=== PATIENT | male | born 1985 | race Caucasian/White ===

== ENCOUNTER 2020-02-24 07:41 | Outpatient (REF) | payer OTHER, SELFPAY ==
[2020-02-24 11:51] LABS: Alanine Aminotransferase 18 U/L (0-40); Albumin Level 4.6 g/dL (3.5-5.0); Alkaline Phosphatase 48 U/L (39-117); Anion Gap 11 (12-20); Aspartate Amino Transferase 18 U/L (5-37); Blood Urea Nitrogen 13 mg/dL (9-16); Calcium 9.3 mg/dL (8.4-10.2); Carbon Dioxide 29 mmol/L (22-29); Chloride 104 mmol/L (96-108); Cholesterol 169 mg/dL; Estimated Glomerular Filt Rate > 60; Glucose Fasting 87 mg/dL (60-99); HDL Cholesterol 49 mg/dL; LDL Cholesterol Calculated 108 mg/dl; Potassium 4.2 mmol/l (3.3-5.1); Sodium 140 mmol/L (135-145); Total Protein 7.3 g/dL (6.5-8.0); Triglycerides 63 mg/dL
== END 2020-02-24 07:42 | disposition home or self-care (01) ==
LOC: HO.HMGCLDS 07:41
PROVIDERS: PCP Nurse Practitioner Family; Visit Provider Nurse Practitioner Family
DX: Z00.00 Encounter for general adult medical examination without abnormal findings (principal)
CPT/HCPCS: 36415; 80053; 80061; 84443

== ENCOUNTER 2021-01-17 11:04 | Outpatient (REF) | payer OTHER, SELFPAY ==
--- NOTE | ~2021-01-17 | XR_ITS ---
EXAMINATION: XR LUMBOSACRAL SPINE CLINICAL INFORMATION: Radiculopathy COMPARISON: 10/02/2018 TECHNIQUE: Three views of the lumbosacral spine. FINDINGS: The vertebral bodies and posterior elements are normal. The disc spaces are preserved and the vertebral alignment is normal. The sacroiliac joints are symmetric. The visualized sacrum is intact. Normal bowel gas pattern. The paraspinal soft tissues are normal. XR/XR lumbar spine 2-3V IMPRESSION: Unremarkable examination.
== END 2021-01-17 11:05 | disposition home or self-care (01) ==
LOC: HO.HMGCX 11:04
PROVIDERS: PCP Nurse Practitioner Family; Visit Provider Nurse Practitioner Family
DX: G89.29 Other chronic pain (principal); M54.16 Radiculopathy, lumbar region
CPT/HCPCS: 72100

== ENCOUNTER 2021-02-28 08:00 | Outpatient (RCR) | payer OTHER, SELFPAY ==
--- NOTE | 2021-01-31 08:18 | MHC.PT.EP ---
[facility] [place] Office [place] Office [place] Office [address] Paxton Rodriguez [address] [phone] F: [phone] F: [phone] F: [phone] F: [phone] Physical Therapy Plan of Care Date of Evaluation: Date of Surgery: n/a Diagnosis: chornic low back pain with radicular symptoms. Assessment: Patient is a 35 year old R handed male who presents with s/s consistent with pain low back pain with radiculopathy. He works with daily job demands including sitting, standing, walking. He does have to complete a PT test as well. Patient past medical history includes shoulder pain. Current impairments include pain, posture, ROM, strength, flexibility, activity tolerance and functional mobility. Functional limitations include decreased ability to bend, lift, carry, push, pull, sleep and squat as well as perform a plank. Patient is motivated with good rehab potential. Skilled PT will address impairments and functional limitations in order to achieve goals. Frequency and Duration: The patient will be seen 1x/week for 8 weeks Short Term Goals: I with HEP - 2 weeks Centralized s/s - 3 weeks Demo proper squat form - 3 weeks [facility]cc Goals: Oswestry 12% or better - 6 weeks I with s/s management - 8 weeks Pain with ADLs 2/10 or better - 8 weeks Treatment Plan: Modalities to reduce pain, spasms and effusion. Manual therapy to restore motion and function. Therapeutic exercise to improve strength and flexibility. Neuromuscular re-education for posture and balance. Therapeutic activities to return to functional activities of daily living. Electronically signed by: Cullen Llamas, PT Please sign and return to therapist. Thank you for your referral.
--- NOTE | 2021-09-28 09:40 | MHC.PT.DC ---
[facility] [place] Office [place] Office [place] Office [address] [phone] F: [phone] F: [phone] F: [phone] F: [phone] Physical Therapy Discharge Report Diagnosis: chornic low back pain with radicular symptoms. Date of Surgery: n/a Date of Evaluation: 01/30/21 Date of Discharge: 05/01/21 Treatments to Date: 4 Cancellations to Date: 0 No Shows to Date: 0 Discharge Status: Independent with HEP Discharge Summary: Pt had to stop PT at this time. Pt felt reduced tightness after RX. R D/S spasm palpable with STM. Improved L L.E leg length after MET Electronically signed by: Cullen Llamas, PT Please sign and return to therapist. Thank you for your referral.
== END 2021-09-28 09:40 | disposition home or self-care (01) ==
LOC: HO.PTCHIC 08:00
PROVIDERS: PCP Nurse Practitioner Family; Visit Provider Nurse Practitioner Family
DX: M54.16 Radiculopathy, lumbar region (principal); G89.29 Other chronic pain
CPT/HCPCS: 97014; 97110; 97140; 97161

== ENCOUNTER 2021-03-02 17:02 | Outpatient (REF) | payer OTHER, SELFPAY ==
--- NOTE | ~2021-03-02 | XR_ITS ---
EXAMINATION: XR ANKLE, RIGHT CLINICAL INFORMATION: Ankle sprain. COMPARISON: None. TECHNIQUE: AP, lateral, and mortise views of the right ankle. FINDINGS: No evidence of acute fractures or malalignment. The ankle mortise is congruent and the talar dome is within normal limits. There is circumferential soft tissue thickening around the ankle without unexpected radiopaque foreign bodies or subcutaneous air. XR/XR ankle RT min 3V IMPRESSION: No acute fractures or malalignment. Soft tissue thickening. For evaluation of ligamentous or tendinous injuries, consider correlation with an MR.
== END 2021-03-02 17:03 | disposition home or self-care (01) ==
LOC: HO.HMGCX 17:02
PROVIDERS: PCP Nurse Practitioner Family; Visit Provider Physician Assistant Medical
DX: S93.401D Sprain of unspecified ligament of right ankle, subsequent encounter (principal)
CPT/HCPCS: 73610

== ENCOUNTER 2021-03-15 09:36 | Outpatient (REF) | payer OTHER, SELFPAY ==
--- NOTE | ~2021-03-15 | MR_ITS ---
EXAMINATION: MRI OF THE RIGHT ANKLE WITHOUT CONTRAST CLINICAL INFORMATION: Sprain of unspecified ligament. COMPARISON: None TECHNIQUE: MRI of the right ankle was performed without contrast on high-field MRI scanner. FINDINGS: Bone and articular cartilage: There is a non displaced coronally oriented fracture through the posterior malleolus with surrounding marrow edema. There is edema in the surrounding soft tissues. There is a joint effusion and synovitis of the talocrural joint. There is minimal edema along the dorsal aspect of the head of the talus compatible with bone contusion. The remaining bones and joints are normal. Ligaments: There is some irregularity and thickening and probable laxity of the anterior talofibular ligament and anterior inferior tibiofibular ligament compatible with subacute partial tearing. The remaining ligaments are intact. Muscles and tendons: Normal. Plantar fascia: Normal. Neurovascular structures/tarsal tunnel: Normal MR/MR ankle RT wo con IMPRESSION: Nondisplaced acute/subacute fracture of the posterior malleolus. Partial tear of the anterior inferior tibiofibular ligament and anterior talofibular ligament likely subacute or chronic. Probable associated laxity of the anterior talofibular ligament. Joint effusion and synovitis of the talocrural joint. Minimal bone contusion along the dorsal aspect of the head of the talus.
== END 2021-03-15 09:37 | disposition home or self-care (01) ==
LOC: HO.MRI 09:36
PROVIDERS: PCP Nurse Practitioner Family; Visit Provider Nurse Practitioner Family
DX: S93.401A Sprain of unspecified ligament of right ankle, initial encounter (principal); M25.471 Effusion, right ankle; M25.571 Pain in right ankle and joints of right foot
CPT/HCPCS: 73721

== ENCOUNTER → 2021-03-22 08:22 | Outpatient (BNVA) | payer OTHER, SELFPAY | PROVIDERS: PCP Nurse Practitioner Family; Visit Provider Physician Assistant | DX: S82.891D Other fracture of right lower leg, subsequent encounter for closed fracture with routine healing (principal) | CPT/HCPCS: 99202 ==

== ENCOUNTER 2021-04-06 06:57 | Outpatient (REF) | payer OTHER, SELFPAY ==
--- NOTE | ~2021-04-06 | XR_ITS ---
EXAMINATION: XR HAND, LEFT CLINICAL INFORMATION: Left hand skin anesthesia. COMPARISON: None TECHNIQUE: PA, lateral, and oblique views of the left hand. FINDINGS: The bones and soft tissues are normal. No fracture. Alignment is anatomic. Joint spaces are maintained. No erosions or soft tissue calcifications. XR/XR hand LT min 3V IMPRESSION: Unremarkable left hand.
--- NOTE | ~2021-04-06 | XR_ITS ---
EXAMINATION: XR HAND, RIGHT CLINICAL INFORMATION: Right hand skin anesthesia. COMPARISON: None TECHNIQUE: PA, lateral, and oblique views of the right hand. FINDINGS: The bones and soft tissues are normal. No fracture. Alignment is anatomic. Joint spaces are maintained. No erosions or soft tissue calcifications. XR/XR hand RT min 3V IMPRESSION: Unremarkable right hand.
[2021-04-06 11:36] LABS: Appearance Urine CLOUDY; Color Urine YELLOW; Glucose Urine UA NEG (NEG); Leukocyte Esterase Urine NEG (NEG); Nitrite Urine NEG (NEG); Specific Gravity - Urine >= 1.030 (1.005-1.025); Urine Blood NEG (NEG); Urine Ketones NEG (NEG); Urine Protein NEG (NEG-TRACE)
[2021-04-06 11:51] LABS: Alanine Aminotransferase 16 U/L (0-40); Albumin Level 4.7 g/dL (3.5-5.0); Alkaline Phosphatase 46 U/L (39-117); Anion Gap 12 (12-20); Aspartate Amino Transferase 21 U/L (5-37); Bilirubin Total 1.3 mg/dL (0.0-1.0); Blood Urea Nitrogen 13 mg/dL (9-16); C Reactive Protein 0.15 mg/dL (< or = 0.50); Calcium 9.9 mg/dL (8.4-10.2); Carbon Dioxide 27 mmol/L (22-29); Chloride 104 mmol/L (96-108); Cholesterol 161 mg/dL; Estimated Glomerular Filt Rate > 60; Glucose Fasting 97 mg/dL (60-99); HDL Cholesterol 48 mg/dL; LDL Cholesterol Calculated 105 mg/dl; Potassium 4.3 mmol/L (3.3-5.1); Sodium 139 mmol/L (135-145); Total Protein 7.4 g/dL (6.5-8.0); Triglycerides 41 mg/dL
[2021-04-06 12:01] LABS: TSH reflex Free T4 1.63 uIU/mL (0.32-4.0)
[2021-04-06 12:07] LABS: Rheumatoid Factor < 15.0 IU/mL (<15.0)
[2021-04-06 12:09] LABS: Erythrocyte Sedimentation Rate 2 MM/HR (0-15)
[2021-04-10 12:11] LABS: Anti Nuclear Antibody Screen POSITIVE (NEGATIVE)
== END 2021-04-06 06:58 | disposition home or self-care (01) ==
LOC: HO.HMGCLDS 06:57
PROVIDERS: Visit Provider Nurse Practitioner Family
DX: Z00.00 Encounter for general adult medical examination without abnormal findings (principal); R20.0 Anesthesia of skin; M79.641 Pain in right hand; M79.642 Pain in left hand; Z13.220 Encounter for screening for lipoid disorders; Z13.29 Encounter for screening for other suspected endocrine disorder
CPT/HCPCS: 36415; 73130; 80053; 80061; 81003; 84443; 85652; 86038; 86039; 86140; 86431

== ENCOUNTER 2021-04-07 06:55 | Outpatient (REF) | payer OTHER, SELFPAY ==
--- NOTE | ~2021-04-07 | XR_ITS ---
EXAMINATION: XR ANKLE, RIGHT CLINICAL INFORMATION: Pain COMPARISON: Previous x-ray February 2021 and MRI March 2021 TECHNIQUE: AP, lateral, and mortise views of the right ankle. FINDINGS: Bone alignment is normal. No fracture or dislocation is seen. Nondisplaced posterior malleolar fracture is not evident by x-ray. The ankle mortise is normal. There is an ankle joint effusion. XR/XR ankle RT min 3V IMPRESSION: Ankle joint effusion. Nondisplaced posterior malleolar fracture not evident by x-ray.
== END 2021-04-07 06:56 | disposition home or self-care (01) ==
LOC: HO.HOSX 06:55
PROVIDERS: Visit Provider Physician Assistant
DX: S82.891D Other fracture of right lower leg, subsequent encounter for closed fracture with routine healing (principal)
CPT/HCPCS: 73610; 99212